=== PATIENT | female | born 1975 | race Caucasian/White ===

== ENCOUNTER 2019-02-23 10:13 | Emergency (ER) | payer SELFPAY ==
[~2019-02-23] VITALS: Ht 175.3 cm; Wt 100.0 kg
[~2019-02-23 10:13] MED LIST: ALPR0.5T; CELEXA; SEROQUEL
[2019-02-23] MEDS ORDERED: LORAZEPAM 0.5MG TABLET PO ONE (11:15)
[2019-02-23 11:38] LABS: EOSINOPHILS % 2.4 % (0.0-5.0); HEMATOCRIT. 42.1 % (36.0-48.0); HEMOGLOBIN. 14.5 g/dL (12.0-16.0); LYMPHOCYTES % 32.7 % (20.0-50.0); MEAN CORPUSCULAR HEMOGLOBIN 30.6 pg (28.0-32.0); MONOCYTES % 7.1 % (2.0-8.0); NEUTROPHILS % 56.8 % (40.0-76.0); RED BLOOD CELL COUNT 4.73 mill/uL (4.2-5.4); RED CELL DISTRIBUTION WIDTH 13.7 % (11.6-14.6)
[2019-02-23 11:47] LABS: CHLORIDE 106 mEq/L (98-107)
[2019-02-23 12:23] VITALS: BP 162/97
== END 2019-02-23 12:44 | disposition home or self-care (01) ==
LOC: ER 10:17
DX: F41.1 Generalized anxiety disorder (principal); R07.89 Other chest pain; R06.02 Shortness of breath; R20.2 Paresthesia of skin; F17.200 Nicotine dependence, unspecified, uncomplicated
CPT/HCPCS: 36415; 71045; 84484; 93005; 99284

== ENCOUNTER 2020-07-10 15:22 | Emergency (ER) | payer SELFPAY ==
[~2020-07-10] VITALS: Ht 175.3 cm; Wt 106.0 kg
[2020-07-10] MEDS ORDERED: METHYLPREDNISOLONE SOD SUCC 125 MG/2 ML VIAL IM STA (15:43)
[2020-07-10] MEDS ORDERED: ALBUTEROL 6.7GM HFA INHALER ORI ONE (15:45)
[2020-07-10 16:02] VITALS: BP 165/90
== END 2020-07-10 16:54 | disposition home or self-care (01) ==
LOC: ER 15:28
DX: J45.901 Unspecified asthma with (acute) exacerbation (principal)
CPT/HCPCS: 96372; 99283; J2930; Z7610